=== PATIENT | male | born 1955 | race Caucasian/White ===

== ENCOUNTER 2022-05-01 10:30 | Outpatient (RCR) | payer OTHER, BC, SELFPAY | END 2022-10-31 23:59 | disposition home or self-care (01) | PROVIDERS: PCP Family Medicine; Visit Provider Family Medicine | DX: M25.512 Pain in left shoulder (principal); Z51.89 Encounter for other specified aftercare | CPT/HCPCS: 97110; 97140; 97161; 97535 ==

== ENCOUNTER 2023-03-19 14:00 | Emergency (ER) | payer BC, SELFPAY ==
[2023-03-19 14:13] VITALS: BP 183/86; PULSE 86; RESP 18; TEMP 36.2; O2SAT 98; BMI 40.4
--- NOTE | 2023-03-19 14:44 | CRLHL7_ITS ---
For Patients: As a result of the Century Cures Act, medical imaging exams and procedure reports are released immediately into your electronic medical record. You may view this report before your referring provider. If you have questions, please contact your health care provider. INDICATION: Right flank pain. TECHNIQUE: CT abdomen and pelvis without contrast. COMPARISON: None. FINDINGS: Lower chest: No focal consolidation. Evaluation of solid organs is limited secondary to lack of IV contrast administration. Liver: Diffuse hepatic steatosis. Gallbladder and bile ducts: Unremarkable. Pancreas: Unremarkable. Spleen: Unremarkable. Adrenal glands: 1.0 cm left adrenal adenoma. Unremarkable appearance of the right adrenal gland. Kidneys: No renal calculi or hydronephrosis bilaterally. Mild atrophy of the left kidney. Retroperitoneum: No lymphadenopathy. Bowel and mesentery: Bowel is not obstructed. No significant ascites. No pneumoperitoneum. Normal appendix. Bladder: Decompressed, suboptimally evaluated. Reproductive organs: No significant prostatomegaly. Pelvic lymph nodes: No lymphadenopathy. Vessels: Scattered atherosclerotic calcifications. Abdominal wall: Small fat filled ventral abdominal wall hernia. No acute abnormality. Bones: Multilevel degenerative changes of the spine. No suspicious/aggressive focal osseous lesion. IMPRESSION: 1. No renal calculi or hydronephrosis bilaterally. 2. Mild atrophy of the left kidney. 3. Diffuse hepatic steatosis. Please note that all CT scans at this facility use dose modulation, iterative reconstruction, and/or weight-based dosing when appropriate to reduce radiation dose to as low as reasonably achievable. Dictated by Ana Laura Roberts MD @ 03/19/2023 4:01:20 PM (Electronically Signed)
--- NOTE | 2023-03-19 14:46 | ED_ITS ---
HPI - General Adult General Chief complaint: Abdominal Pain Stated complaint: possible kidney stones Time Seen by Provider: 03/19/23 14:33 History of Present Illness HPI narrative: [age] year white male Gen[place] history of COPD, presents with couple day history of right flank pain. He describes it initially when he got up out of a chair, secondarily got significantly when he got up earlier today and stood up. He still feels it when he is ambulating around. He walks in a slightly flexed position feels like in his right low back. He has not had a lot of back trouble. He was concerned about a kidney stone as this runs in his family and his mother has chronic kidney disease. Patient has hypertension and is followed by a manager services. He is here with his daughter and she is going to drive him home. There is no gross hematuria there is no abdominal pain anteriorly he is ambulatory he has got no radicular symptoms in his legs. Related Data Allergies Allergy/AdvReac Type Severity Reaction Status Date / Time Unable to Assess Allergy Unverified 03/19/23 14:13 Review of Systems Status of ROS: Reports: 10 or more systems reviewed and unremarkable except as noted in History and below [facility] Social History Non-prescribed substance use: denies use Exam Narrative: Exam Narrative: Objective: Vital signs look within normal limits exception of blood pressure elevated 183/86 Alert orient x3, no distress, patient is has elevated BMI. HEENT is unremarkable No palpable back pain he describes pain over his right low back above his belt line, little bit below his CVA area. No rebound palpation of his back Abdomen benign Extremities without edema neurologic nonfocal, patient is ambulatory with a cane. Const: Vital Signs, click to edit/add: Vital Signs - 24 hr 03/19/23 14:13 Temperature 97.2 F L Pulse Rate [Pulse Oximeter] 86 Respiratory Rate 18 Blood Pressure [Ri ght Upper Arm] 183/86 H Pulse Oximetry 98 Oxygen Delivery Me thod Room Air Course Vital Signs Vital signs: Initial Vital Signs Temperature 97.2 F L 03/19/23 14:13 Temperature Source Temporal Artery Scan 03/19/23 14:13 Pulse Rate 86 03/19/23 14:13 Respiratory Rate 18 03/19/23 14:13 Blood Pressure 183/86 H 03/19/23 14:13 Blood Pressure Mean 118 H 03/19/23 14:13 Pulse Oximetry 98 03/19/23 14:13 Oxygen Delivery Method Room Air 03/19/23 14:13 Vital Signs Temperature 97.2 F L 03/19/23 14:13 Pulse Rate 86 03/19/23 14:13 Respiratory Rate 18 03/19/23 14:13 Blood Pressure 183/86 H 03/19/23 14:13 Pulse Oximetry 98 03/19/23 14:13 Oxygen Delivery Method Room Air 03/19/23 14:13 Temperature 97.2 F L 03/19/23 14:13 Pulse Rate 86 03/19/23 14:13 Respiratory Rate 18 03/19/23 14:13 Blood Pressure 183/86 H 03/19/23 14:13 Pulse Oximetry 98 03/19/23 14:13 Oxygen Delivery Method Room Air 03/19/23 14:13 Medications Administered Medications: Discontinued Medications Generic Name Dose Route Start Last Admin Trade Name Freq PRN Reason Stop Dose Admin Sodium Chloride 500 mls @ 500 mls/hr 03/19/23 14:44 03/19/23 15:25 0.9 % Sodium Chloride 500 Ml IV 03/19/23 15:43 500 mls/hr .Q1H ONE Administration Morphine Sulfate 4 mg 03/19/23 14:44 03/19/23 15:28 Morphine 4 Mg/Ml Inj IVP 03/19/23 14:45 4 mg ONCE ONE Administration Medical Decision Making MDM Narrative Medical decision making narrative: [age] year white male with COPD with right low back pain for the last couple of days intermittent, probably musculoskeletal but I think doing a rule out for kidney stone be appropriate will get a CT scan unenhanced of his abdomen pelvis, urinalysis, lab studies, will give IV fluid 500 mL normal saline an 4 mg of morphine IV. He has a ride home. Disposition pending findings above. Addendum 4:[address] scan looks unremarkable no common ureteral stone noted, no other intra-abdominal problem noted, his urinalysis looks negative. His CBC shows a white count that is normal and hemoglobin this normal, is Chem profile is pending but I do not think that will hold him up from going home he would like to go at this time. Will give him ibuprofen and Tylenol recommendation to take for his back discomfort likely this is musculoskeletal, and would recommend recheck with regular doctor next several days not improving changes concerns worsening return to the ED. Lab Data Labs: Lab Results 03/19/23 03/19/23 Range/Units 14:52 15:30 WBC 6.86 (4.50-11.00) K/uL RBC 4.81 (4.30-5.90) m/uL Hgb 15.4 (13.5-17.5) gm/dL Hct 45.9 (37.0-53.0) % MCV 95 (80-100) fL MCH 32 (26-34) pg MCHC 34 (32-36) gm/dL RDW Coeff of Qasim 11.7 (11.5-15.5) % Plt Count 268 (140-440) K/uL Neut % (Auto) 75.1 H (42.0-72.0) % Lymph % (Auto) 15.2 L (20-44) % [place] % (Auto) 8.5 (0.0-11.0) % Eos % (Auto) 0.7 (0.0-7.0) % Baso % (Auto) 0.4 (0.0-3.0) % Neut # (Auto) 5.20 (1.7-7.0) K/uL Lymph # (Auto) 1.00 (0.90-2.90) K/uL [place] # (Auto) 0.60 (0.00-0.90) K/UL Eos # (Auto) 0.05 (0.00-0.50) K/uL Baso # (Auto) 0.03 (0.00-0.30) K/uL Abs Immat Gran (auto) 0.01 (0.00-0.30) K/uL Imm/Tot Granulo (auto) 0.1 % Sodium 127 L (135-149) mmol/L Potassium 4.0 (3.6-5.1) mmol/L Chloride 92 L (96-114) mmol/L Carbon Dioxide 24 (20-32) mmol/L Anion Gap 11 (7-15) mEq/L BUN 11 (7-30) mg/dL Creatinine 0.8 (0.5-1.5) mg/dL Estimated Creat Clear 64.69 Estimated GFR 97 ml/min Glucose 103 (60-115) mg/dL Calcium 9.2 (8.4-10.6) mg/dL C-Reactive Protein 0.6 (0.5-1.0) mg/dL Urine Color Yellow (Yellow) Urine Appearance Clear (Clear) Urine pH 7.0 (5.0-8.5) Ur Specific [place] 1.020 (1.000-1.030) Urine Protein Negative (Negative) Urine Glucose (UA) Negative (Negative) Urine Ketones Trace A (Negative) Urine Blood Negative (Negative) Urine Nitrite Negative (Negative) Urine Bilirubin Negative (Negative) Urine Urobilinogen 0.2 (0.2-1.0) Ur Leukocyte Esterase Negative (Negative) Urine RBC 2-5 A (0-2) Urine WBC 2-5 (0-5) Ur Squamous Epith Cells None (None-Few) Amorphous Sediment Few A (None) Urine Bacteria None (None) Discharge Plan Discharge Clinical Impression: Acute right flank pain, Acute low back pain Patient Disposition: Home w/ Parent or Adult Condition: Improved Additional Instructions: Ice to the back 5-10 minutes 3 to 5 times a day, Advil and Tylenol as needed, recheck with regular doctor in several days not improving changes or concerns. Light activity recommended no repetitive bending for now. Activity Level: Light activity Discharge Diet: Regular Follow Up/Referrals: Cecilia Peacock MD [Primary Care Provider] - Stand Alone Forms: [facility] Info Instructions
[2023-03-19 15:01] LABS: Appearance Urine Clear (Clear); Bilirubin Urine Negative (Negative); Blood Urine Negative (Negative); Color Urine Yellow (Yellow); Glucose Urine Negative (Negative); Ketones Urine Trace (Negative); Leukocyte Esterase Urine Negative (Negative); Nitrite Urine Negative (Negative); Protein Urine Negative (Negative); Urobilinogen Urine 0.2 (0.2-1.0)
[2023-03-19 15:23] LABS: Amorphous Sediment Urine Few
[2023-03-19] MEDS: 0.9 % SODIUM CHLORIDE 500 ML 500 ML IV (15:25)
[2023-03-19] MEDS: MORPHINE 4 MG/ML INJ IVP (15:28)
[2023-03-19 15:42] LABS: Basophils Absolute Auto 0.03 K/uL (0.00-0.30); Basophils Percent Auto 0.4 % (0.0-3.0); Eosinophils Absolute Auto 0.05 K/uL (0.00-0.50); Eosinophils Percent Auto 0.7 % (0.0-7.0); Hematocrit 45.9 % (37.0-53.0); Hemoglobin* 15.4 gm/dL (13.5-17.5); Immature Granulocytes Abs Auto 0.01 K/uL (0.00-0.30); Immature Granulocytes Pct Auto 0.1 %; Lymphocytes Percent Auto 15.2 % (20-44); Mean Corpuscular HGB Conc 34 gm/dL (32-36); Mean Corpuscular Hemoglobin 32 pg (26-34); Mean Corpuscular Volume 95 fL (80-100); Monocytes Percent Auto 8.5 % (0.0-11.0); Neutrophils Percent Auto 75.1 % (42.0-72.0); Platelet Count* 268 K/uL (140-440); RDW Coefficient of Variation % 11.7 % (11.5-15.5); Red Blood Count 4.81 m/uL (4.30-5.90); White Blood Count* 6.86 K/uL (4.50-11.00)
[2023-03-19 15:43] LABS: Slide Review Reflex No
[2023-03-19 16:04] LABS: Chloride* 92 mmol/L (96-114); Sodium* 127 mmol/L (135-149)
[2023-03-19 16:07] LABS: Anion Gap 11 mEq/L (7-15); Blood Urea Nitrogen* 11 mg/dL (7-30); Carbon Dioxide* 24 mmol/L (20-32); Creatinine* 0.8 mg/dL (0.5-1.5); Est. Creatinine Clearance* 64.69; Estimated Glomerular Filt Rate 97 ml/min
[2023-03-19 16:08] LABS: Calcium* 9.2 mg/dL (8.4-10.6); Glucose* 103 mg/dL (60-115)
[2023-03-19 16:10] LABS: C Reactive Protein* 0.6 mg/dL (0.5-1.0)
[2023-03-19 16:47] VITALS: BP 177/103
--- NOTE | 2023-03-19 16:57 | ED.NURSE ---
at discharge pt was concerns about pt blood pressure, movie writer rechecked BP and it was 177/103. pt then told movie writer that he is on 2 blood pressure medications but is only taking one sometimes. movie writer educated pt on the importance of medication compliance and emphasized the importance to following up with the prescribing MD with concerns.
== END 2023-03-19 16:56 | disposition home or self-care (01) ==
PROVIDERS: Emergency Provider Family Medicine; PCP Family Medicine
DX: M54.50 Low back pain, unspecified (principal)
CPT/HCPCS: 36415; 74176; 80048; 81001; 85025; 86140; 87086; 96374; 99283; 99284; J2270; J7120